=== PATIENT | male | born 1980 | race Caucasian/White ===

== ENCOUNTER 2018-03-18 03:46 | Emergency (ER) | payer OTHER ==
[2018-03-18 03:54] VITALS: BP 145/78
[2018-03-18] MEDS ORDERED: CIPROFLOXACIN HCL/DEXAMETH OTIC DROP 7.5 ML AD ONE (05:03)
[2018-03-18] MEDS ORDERED: HYDROCODONE/ACETAMINOPHEN 5-325 MG (6 TAB/ER DISP) PO PRN (05:04)
[2018-03-18] MEDS ORDERED: AMOXICILLIN TRIHYDRATE 500 MG CAPSULE PO ONE (05:04)
--- NOTE | 2018-03-18 05:15 | ER Document Report ---
HPI - HPI Patient complains to provider of: right ear pain Pain Level: 5 Context: Patient is a 37-year-old male that comes emergency department for chief complaint of right ear pain. He states he has been swimming in the water all week, he states that Wednesday he started having some ear pain so he was seen by an urgent care and placed on eardrops, he states symptoms did not improve and over the past day they have significantly worsened with throbbing pain. He denies fever, vomiting, drainage from the ear, headache. He denies sore throat. Past medical history of type 2 diabetes, hyperlipidemia. Past Medical History - General Information source: Patient - Social History Smoking Status: Never Smoker Drug Abuse: None Lives with: Family Family History: Reviewed & Not Pertinent - Past Medical History Cardiac Medical History: Reports: Hx Hypertension Endocrine Medical History: Reports: Hx Diabetes Mellitus Type 2 - Immunizations Hx Diphtheria, Pertussis, Tetanus Vaccination: Yes Vertical Provider Document - CONSTITUTIONAL General Appearance: WD/WN, No Apparent Distress, Obese - INFECTION CONTROL TRAVEL OUTSIDE OF THE [place] IN LAST 30 DAYS: No - HEENT HEENT: Atraumatic, Normocephalic, PERRLA, Tympanic Membrane Red. negative: Conjuctival Injection, Dental Injury, Normal ENT Exam - Swelling of the right ear canal with erythema consistent with otitis externa, there is also loss of landmarks and erythema of the tympanic membrane on the right compared to left, no purulent drainage, no foreign body, no other abnormality noted. Tragus tenderness. No mastoid tenderness bilaterally., Pharyngeal Exudate, Pharyngeal Tenderness, Pharyngeal Erythema - NECK Neck: Normal Inspection - RESPIRATORY Respiratory: Breath Sounds Normal, No Respiratory Distress - CARDIOVASCULAR Cardiovascular: Regular Rate, Regular Rhythm - GI/ABDOMEN Gastrointestinal: Abdomen Soft, Abdomen Non-Tender - BACK Back: Normal Inspection - MUSCULOSKELETAL/EXTREMETIES Musculoskeletal/Extremeties: MAEW, FROM, Non-Tender - NEURO Level of Consciousness: Awake, Alert, Appropriate - DERM Integumentary: Warm, Dry, No Rash Course - Re-evaluation Re-evalutation: Examination consistent with both otitis externa and otitis media. Ear wick was placed, placing on amoxicillin, given Ciprodex here to go home with, discussed recommendations, follow-up, return precautions. Patient states understanding and agreement. - Vital Signs Vital signs: Temp Pulse Resp BP Pulse Ox 97.7 F 78 14 145/78 H 99 08/17/18 03:49 03/18/18 03:49 03/18/18 03:49 03/18/18 03:49 03/18/18 03:49 Discharge - Discharge Clinical Impression: Right otitis externa Qualifiers: Otitis externa type: swimmer's ear Chronicity: acute Qualified Code(s): H60.331 - Swimmer's ear, right ear Right otitis media Qualifiers: Otitis media type: suppurative Chronicity: acute Recurrence: not specified as recurrent Spontaneous tympanic membrane rupture: without spontaneous rupture Qualified Code(s): H66.001 - Acute suppurative otitis media without spontaneous rupture of ear drum, right ear Condition: Stable Disposition: HOME, SELF-CARE Additional Instructions: Your examination shows ear canal infection and middle ear infection. Use antibiotic drops as prescribed, use oral antibiotic as prescribed, take ibuprofen for pain. Symptoms sometimes last for 1-2 weeks. Wick will fall out after swelling goes down on its own. Follow-up with primary care. Return for any concerning symptoms including fever of 100.4 or greater, swelling behind the ear, severe pain, vomiting, or any other concerning symptoms. Prescriptions: Amoxicillin Trihydrate [Amoxil 875 mg Tablet] 1 tab PO BID #20 tablet
== END 2018-03-18 05:30 | disposition home or self-care (01) ==
LOC: ER 03:46
DX: H60.331 Swimmer's ear, right ear (principal); H66.001 Acute suppurative otitis media without spontaneous rupture of ear drum, right ear; H92.01 Otalgia, right ear; E11.9 Type 2 diabetes mellitus without complications; I10 Essential (primary) hypertension
CPT/HCPCS: 99283; J3490